=== PATIENT | male | born 1960 | race Caucasian/White ===

== ENCOUNTER 2021-04-20 08:52 | Inpatient (IN) | payer MEDICAID, OTHER ==
[~2021-04-20] VITALS: Ht 180.3 cm; Wt 158.2 kg
[~2021-04-20 08:52] MED LIST: ATEN-73 PO; INSLAN SQ; LISI-894 PO
[2021-04-20 09:43] LABS: BASOPHILS % (AUTO) 0.4 % (0.0-2.0); EOSINOPHILS % (AUTO) 0.7 % (1.0-6.0); HEMATOCRIT 34.9 % (41-53); HEMOGLOBIN 11.8 g/dL (13.5-17.5); LYMPHOCYTES # (AUTO) 0.9 K/uL (1.0-4.8); LYMPHOCYTES % (AUTO) 4.7 % (22.0-44.0); MEAN CORPUSCULAR HEMOGLOBIN 29.6 pg (26.0-34.0); MEAN CORPUSCULAR HGB CONC 33.8 G/dL (31.0-37.0); MEAN CORPUSCULAR VOLUME 88 fL (80-100); MONOCYTES # (AUTO) 1.4 K/uL (0.1-1.0); MONOCYTES % (AUTO) 7.4 % (2.0-9.0); NEUTROPHILS # (AUTO) 16.4 K/uL (1.8-7.7); NEUTROPHILS % (AUTO) 86.8 % (40.0-70.0); PLATELET COUNT (AUTO) 293 K/uL (150-450); RED BLOOD CELL COUNT(AUTO) 3.98 MIL/uL (4.50-5.90); RED CELL DISTRIBUTION WIDTH 13.6 % (11.5-14.5)
[2021-04-20 09:47] LABS: CALCIUM, TOTAL 8.5 mg/dL (8.8-10.5); CREATININE 1.57 mg/dL (0.60-1.30); POTASSIUM 3.9 mmol/L (3.5-5.1)
[2021-04-20 09:53] LABS: ALBUMIN 2.8 g/dL (3.4-5.0); TOTAL PROTEIN, SERUM 7.5 g/dL (6.4-8.2)
[2021-04-20] MEDS ORDERED: SODIUM CHLORIDE 0.9% 100 ML ONE (10:28)
[2021-04-20] MEDS ORDERED: IOHEXOL 350 MG/ML 150 ML VIAL ONE (10:28)
[2021-04-20] MEDS ORDERED: PIPERACILLIN/TAZO 3.375 GM/D5W 50 ML IV ONE (11:45)
[2021-04-20 13:12] LABS: COVID AG,FIA SOURCE NASOPHARYNGEAL
[2021-04-20] MEDS ORDERED: RINGERS SOLUTION,LACTATED 1,000 ML IV ONE (14:17)
[2021-04-20] MEDS ORDERED: VANCOMYCIN HCL 1 GM/VIAL ONE (14:40)
[2021-04-20] MEDS ORDERED: LIDOCAINE/PF 1% 30 ML VIAL ONE (14:40)
[2021-04-20] MEDS ORDERED: BUPIVACAINE HCL/PF 0.25% 30 ML VIAL ONE (14:40)
[2021-04-20] MEDS ORDERED: SODIUM CL IRRIG SOLN BAG 3,000 ML IRRIG ONE (14:40)
[2021-04-20] MEDS ORDERED: SODIUM CHLORIDE 0.9% 0 ML ONE (14:40)
[2021-04-20] MEDS ORDERED: BUPIVACAINE HCL/PF 0.5% 30 ML VIAL ONE (14:40)
[2021-04-20] MEDS ORDERED: HYDROmorphone 2 MG/ML VIAL IVP PRN (15:15)
[2021-04-20] MEDS ORDERED: FentaNYL CITRATE PF 100 MCG/2 ML VIAL IVP PRN (15:15)
[2021-04-20] MEDS ORDERED: SUGAMMADEX SODIUM 200 MG/2 ML VIAL IVP ONE (15:28)
[2021-04-20 17:00] VITALS: BP 111/50
[2021-04-20] MEDS ORDERED: AZIL1TAB2 PO (17:58)
[2021-04-20] MEDS ORDERED: METO-558 PO (17:58)
[2021-04-20] MEDS ORDERED: ISOS30TA92 PO (17:58)
[2021-04-20] MEDS ORDERED: CLOT15CR29 TP (17:58)
[2021-04-20] MEDS ORDERED: AMLO-258 PO (17:58)
[2021-04-20] MEDS ORDERED: METF-1185 PO (17:58)
[2021-04-20] MEDS ORDERED: ATOR20TA86 PO (17:58)
[2021-04-20] MEDS ORDERED: LEVO25TA9 PO (17:58)
[2021-04-20] MEDS ORDERED: SITA50 PO (17:58)
[2021-04-20] MEDS ORDERED: DEXTROSE 50%-WATER 25 GM/50 ML SYRINGE IVP PRN (20:45)
[2021-04-20] MEDS ORDERED: ALBUTEROL SULFATE 2.5 MG/0.5 ML NEB SOLUTION NEB PRN (21:00)
[2021-04-20] MEDS ORDERED: MORPHINE SULFATE 2 MG/ML SYRINGE IVP PRN (21:00)
[2021-04-20] MEDS ORDERED: ZOLPIDEM TARTRATE 5 MG TABLET PO PRN (21:00)
[2021-04-20] MEDS ORDERED: MAGNESIUM HYDROXIDE SUSPENSION 30 ML UDCUP PO PRN (21:00)
[2021-04-20] MEDS ORDERED: HYDROCODONE/ACETAMINOPHEN 5-325 MG TABLET PO PRN (21:00)
[2021-04-20] MEDS ORDERED: ONDANSETRON HCL 4 MG/2 ML VIAL IVP PRN (21:00)
[2021-04-20] MEDS ORDERED: IPRATROPIUM BROMIDE 0.5 MG/2.5 ML NEB SOLUTION NEB PRN (21:00)
[2021-04-20] MEDS ORDERED: BISACODYL 10 MG RECTAL RECTAL SUPPOSITORY PR PRN (21:00)
[2021-04-20] MEDS ORDERED: ACETAMINOPHEN 325 MG TABLET PO PRN (21:00)
[2021-04-20] MEDS: OXYGEN THERAPY IH SCH (21:17)
[2021-04-20] MEDS: CLOTRIMAZOLE 1% 15 GM CREAM TP SCH (21:17)
[2021-04-20] MEDS: INSULIN LISPRO 100 UNITS/ML SQ PRN (21:18)
[2021-04-20 23:00] VITALS: BP 107/69
[2021-04-20] MEDS: PIPERACILLIN/TAZO 3.375 GM/D5W 50 ML IV SCH (23:51)
[2021-04-20] MEDS: HEPARIN SODIUM,PORCINE 5,000 UNITS/ML VIAL SQ SCH (23:51)
[2021-04-20] MEDS ORDERED: SODIUM CHLORIDE 0.9% 500 ML IV ONE (23:56)
[2021-04-21 00:50] VITALS: BP 134/81
[2021-04-21] MEDS ORDERED: VANCOMYCIN HCL 1 GM/D5% WATER 200 ML IV ONE ×2 (02:00)
[2021-04-21 04:35] VITALS: BP 103/63
[2021-04-21] MEDS ORDERED: SUGAMMADEX SODIUM 200 MG/2 ML VIAL IVP ONE (05:45)
[2021-04-21] MEDS ORDERED: SUCCINYLCHOLINE CHLORIDE 20 MG/ML 10 ML VIAL IVP ONE (05:45)
[2021-04-21] MEDS ORDERED: MIDAZOLAM HCL 2 MG/2 ML VIAL IVP ONE (05:45)
[2021-04-21] MEDS ORDERED: LIDOCAINE/PF 2% 5 ML SYRINGE IVP ONE (05:45)
[2021-04-21] MEDS ORDERED: FentaNYL CITRATE PF 100 MCG/2 ML VIAL IVP ONE (05:45)
[2021-04-21] MEDS ORDERED: ROCURONIUM BROMIDE 10 MG/ML 5 ML VIAL IVP ONE (05:45)
[2021-04-21] MEDS ORDERED: PROPOFOL 1% 20 ML VIAL IVP ONE (05:45)
[2021-04-21] MEDS ORDERED: ONDANSETRON HCL 4 MG/2 ML VIAL IVP ONE (05:45)
[2021-04-21] MEDS: PIPERACILLIN/TAZO 3.375 GM/D5W 50 ML IV SCH ×3 (05:55→17:12)
[2021-04-21] MEDS: INSULIN LISPRO 100 UNITS/ML SQ PRN ×4 (05:55→21:15)
[2021-04-21] MEDS: LEVOTHYROXINE SODIUM 25 MCG TABLET PO SCH (06:03)
[2021-04-21 06:06] LABS: GLUCOMETER DEV NAME(LOC) 6N.2; GLUCOSE,POINT OF CARE 246 MG/DL (70-110)
[2021-04-21 06:45] LABS: BASOPHILS % (AUTO) 0.1 % (0.0-2.0); EOSINOPHILS % (AUTO) 0 % (1.0-6.0); HEMATOCRIT 34.2 % (41-53); HEMOGLOBIN 11.6 g/dL (13.5-17.5); LYMPHOCYTES # (AUTO) 1.2 K/uL (1.0-4.8); LYMPHOCYTES % (AUTO) 5.9 % (22.0-44.0); MEAN CORPUSCULAR HEMOGLOBIN 29.7 pg (26.0-34.0); MEAN CORPUSCULAR HGB CONC 34.1 G/dL (31.0-37.0); MEAN CORPUSCULAR VOLUME 87 fL (80-100); MONOCYTES # (AUTO) 1.2 K/uL (0.1-1.0); PLATELET COUNT (AUTO) 309 K/uL (150-450); RED BLOOD CELL COUNT(AUTO) 3.92 MIL/uL (4.50-5.90); RED CELL DISTRIBUTION WIDTH 13.3 % (11.5-14.5)
[2021-04-21 07:07] LABS: GLUCOMETER DEV NAME(LOC) 6N.1; GLUCOSE,POINT OF CARE 304 MG/DL (70-110)
[2021-04-21 07:07] LABS: GLUCOMETER DEV NAME(LOC) 6N.1; GLUCOSE,POINT OF CARE 187 MG/DL (70-110)
[2021-04-21 07:09] LABS: ALBUMIN 2.6 g/dL (3.4-5.0); BILIRUBIN,TOTAL 0.9 mg/dL (0.1-1.0); CALCIUM, TOTAL 8.5 mg/dL (8.8-10.5); CREATININE 1.45 mg/dL (0.60-1.30); POTASSIUM 4.9 mmol/L (3.5-5.1); TOTAL PROTEIN, SERUM 7.4 g/dL (6.4-8.2)
[2021-04-21] MEDS: SitaGLIPtin PHOSPHATE 50 MG TABLET PO SCH (08:02)
[2021-04-21] MEDS: OXYGEN THERAPY IH SCH ×2 (08:02→20:00)
[2021-04-21] MEDS: PANTOPRAZOLE SODIUM 40 MG/VIAL IVP SCH (08:03)
[2021-04-21] MEDS: METOPROLOL SUCCINATE 50 MG ER TABLET PO SCH (08:03)
[2021-04-21] MEDS: AmLODIPine BESYLATE 10 MG TABLET PO SCH (08:03)
[2021-04-21] MEDS: ATORVASTATIN CALCIUM 20 MG TABLET PO SCH (08:03)
[2021-04-21] MEDS: HEPARIN SODIUM,PORCINE 5,000 UNITS/ML VIAL SQ SCH ×2 (08:03→15:19)
[2021-04-21] MEDS: ISOSORBIDE MONONITRATE 30 MG ER TABLET PO SCH (08:03)
[2021-04-21] MEDS: INSULIN GLARGINE,HUM.REC.ANLOG 100 UNITS/ML SQ SCH (08:09)
[2021-04-21] MEDS: CLOTRIMAZOLE 1% 15 GM CREAM TP SCH ×2 (08:18→20:05)
[2021-04-21 08:31] VITALS: BP 109/65
[2021-04-21] MEDS ORDERED: VANCOMYCIN HCL 1.25 GM in DEXTROSE 5%-WATER 250 ML IV ONE (09:30)
[2021-04-21 13:51] LABS: GLUCOMETER DEV NAME(LOC) 6N.2; GLUCOSE,POINT OF CARE 202 MG/DL (70-110)
[2021-04-21 16:09] VITALS: BP 105/71
[2021-04-21] MEDS: CHLORTHALIDONE PO SCH (16:35)
[2021-04-21] MEDS: AZILSARTAN MED PO SCH (16:35)
[2021-04-21 18:26] LABS: GLUCOMETER DEV NAME(LOC) 6N.1; GLUCOSE,POINT OF CARE 203 MG/DL (70-110)
[2021-04-21] MEDS: VANCOMYCIN HCL 1.25 GM in DEXTROSE 5%-WATER 250 ML IV SCH (20:05)
[2021-04-21 20:22] VITALS: BP 92/52
[2021-04-21 21:52] LABS: GLUCOMETER DEV NAME(LOC) 6N.1; GLUCOSE,POINT OF CARE 153 MG/DL (70-110)
[2021-04-22] VITALS (8 sets, daily range): BP systolic 76–112; BP diastolic 37–66
[2021-04-22] MEDS: PIPERACILLIN/TAZO 3.375 GM/D5W 50 ML IV SCH ×5 (00:13→23:24)
[2021-04-22] MEDS: HEPARIN SODIUM,PORCINE 5,000 UNITS/ML VIAL SQ SCH ×4 (00:13→23:33)
[2021-04-22] MEDS: LEVOTHYROXINE SODIUM 25 MCG TABLET PO SCH (06:00)
[2021-04-22] MEDS: INSULIN LISPRO 100 UNITS/ML SQ PRN ×4 (06:00→20:48)
[2021-04-22 07:17] LABS: GLUCOMETER DEV NAME(LOC) 6N.2; GLUCOSE,POINT OF CARE 150 MG/DL (70-110)
[2021-04-22] MEDS: VANCOMYCIN HCL 1.25 GM in DEXTROSE 5%-WATER 250 ML IV SCH (07:47)
[2021-04-22] MEDS: OXYGEN THERAPY IH SCH ×2 (08:00→20:00)
[2021-04-22] MEDS: PANTOPRAZOLE SODIUM 40 MG/VIAL IVP SCH (08:12)
[2021-04-22] MEDS: SitaGLIPtin PHOSPHATE 50 MG TABLET PO SCH (08:12)
[2021-04-22] MEDS: ATORVASTATIN CALCIUM 20 MG TABLET PO SCH (08:12)
[2021-04-22] MEDS: INSULIN GLARGINE,HUM.REC.ANLOG 100 UNITS/ML SQ SCH (08:14)
[2021-04-22] MEDS: ISOSORBIDE MONONITRATE 30 MG ER TABLET PO SCH (09:00)
[2021-04-22] MEDS: METOPROLOL SUCCINATE 50 MG ER TABLET PO SCH (09:00)
[2021-04-22] MEDS: AmLODIPine BESYLATE 10 MG TABLET PO SCH (09:00)
[2021-04-22 09:05] LABS: BASOPHILS % (AUTO) 0.5 % (0.0-2.0); EOSINOPHILS % (AUTO) 3.1 % (1.0-6.0); HEMATOCRIT 32.7 % (41-53); LYMPHOCYTES # (AUTO) 2.3 K/uL (1.0-4.8); LYMPHOCYTES % (AUTO) 15.2 % (22.0-44.0); MEAN CORPUSCULAR HEMOGLOBIN 29.4 pg (26.0-34.0); MEAN CORPUSCULAR HGB CONC 33.8 G/dL (31.0-37.0); MEAN CORPUSCULAR VOLUME 87 fL (80-100); MONOCYTES % (AUTO) 6.8 % (2.0-9.0); NEUTROPHILS # (AUTO) 11.4 K/uL (1.8-7.7); NEUTROPHILS % (AUTO) 74.4 % (40.0-70.0); PLATELET COUNT (AUTO) 328 K/uL (150-450); RED BLOOD CELL COUNT(AUTO) 3.75 MIL/uL (4.50-5.90); RED CELL DISTRIBUTION WIDTH 13.4 % (11.5-14.5)
[2021-04-22 09:28] LABS: ALBUMIN 2.5 g/dL (3.4-5.0); BILIRUBIN,TOTAL 0.4 mg/dL (0.1-1.0); CALCIUM, TOTAL 8.3 mg/dL (8.8-10.5); CREATININE 1.45 mg/dL (0.60-1.30); POTASSIUM 3.7 mmol/L (3.5-5.1); VANCOMYCIN,RANDOM 18.5 mcg/mL (25.0-50.0)
[2021-04-22] MEDS: CLOTRIMAZOLE 1% 15 GM CREAM TP SCH ×2 (11:05→20:46)
[2021-04-22] MEDS: VANCOMYCIN HCL 1 GM/D5% WATER 200 ML IV SCH (19:33)
[2021-04-22 20:21] LABS: GLUCOMETER DEV NAME(LOC) 6N.2; GLUCOSE,POINT OF CARE 184 MG/DL (70-110)
[2021-04-22 20:21] LABS: GLUCOMETER DEV NAME(LOC) 6N.1; GLUCOSE,POINT OF CARE 190 MG/DL (70-110)
[2021-04-23 00:46] LABS: GLUCOMETER DEV NAME(LOC) 6N.1; GLUCOSE,POINT OF CARE 165 MG/DL (70-110)
[2021-04-23 05:17] VITALS: BP 100/56
[2021-04-23] MEDS: LEVOTHYROXINE SODIUM 25 MCG TABLET PO SCH (05:50)
[2021-04-23] MEDS: PIPERACILLIN/TAZO 3.375 GM/D5W 50 ML IV SCH ×2 (05:51→12:04)
[2021-04-23] MEDS: INSULIN LISPRO 100 UNITS/ML SQ PRN ×2 (05:55→11:56)
[2021-04-23] MEDS ORDERED: PANTOPRAZOLE SODIUM 40 MG DR TABLET PO SCH (06:30)
[2021-04-23 06:46] LABS: BASOPHILS % (AUTO) 0.9 % (0.0-2.0); HEMATOCRIT 32.2 % (41-53); HEMOGLOBIN 10.9 g/dL (13.5-17.5); LYMPHOCYTES # (AUTO) 2.3 K/uL (1.0-4.8); LYMPHOCYTES % (AUTO) 19.1 % (22.0-44.0); MEAN CORPUSCULAR HEMOGLOBIN 29.3 pg (26.0-34.0); MEAN CORPUSCULAR HGB CONC 33.9 G/dL (31.0-37.0); MEAN CORPUSCULAR VOLUME 86 fL (80-100); MONOCYTES # (AUTO) 0.9 K/uL (0.1-1.0); MONOCYTES % (AUTO) 7.6 % (2.0-9.0); NEUTROPHILS # (AUTO) 8.3 K/uL (1.8-7.7); NEUTROPHILS % (AUTO) 68.4 % (40.0-70.0); PLATELET COUNT (AUTO) 362 K/uL (150-450); RED BLOOD CELL COUNT(AUTO) 3.73 MIL/uL (4.50-5.90); RED CELL DISTRIBUTION WIDTH 13.7 % (11.5-14.5)
[2021-04-23 07:02] LABS: ALBUMIN 2.4 g/dL (3.4-5.0); BILIRUBIN,TOTAL 0.3 mg/dL (0.1-1.0); CALCIUM, TOTAL 8.4 mg/dL (8.8-10.5); CREATININE 1.44 mg/dL (0.60-1.30); POTASSIUM 3.8 mmol/L (3.5-5.1); TOTAL PROTEIN, SERUM 6.8 g/dL (6.4-8.2)
[2021-04-23 07:54] VITALS: BP 100/58
[2021-04-23 07:55] LABS: GLUCOMETER DEV NAME(LOC) 6N.2; GLUCOSE,POINT OF CARE 142 MG/DL (70-110)
[2021-04-23] MEDS: OXYGEN THERAPY IH SCH (08:00)
[2021-04-23] MEDS: VANCOMYCIN HCL 1 GM/D5% WATER 200 ML IV SCH (08:30)
[2021-04-23] MEDS: HEPARIN SODIUM,PORCINE 5,000 UNITS/ML VIAL SQ SCH ×2 (08:31→16:20)
[2021-04-23] MEDS: SitaGLIPtin PHOSPHATE 50 MG TABLET PO SCH (08:31)
[2021-04-23] MEDS: ATORVASTATIN CALCIUM 20 MG TABLET PO SCH (08:31)
[2021-04-23] MEDS: INSULIN GLARGINE,HUM.REC.ANLOG 100 UNITS/ML SQ SCH (08:38)
[2021-04-23] MEDS: CHLORTHALIDONE PO SCH (08:47)
[2021-04-23] MEDS: AZILSARTAN MED PO SCH (08:47)
[2021-04-23] MEDS: ISOSORBIDE MONONITRATE 30 MG ER TABLET PO SCH (08:48)
[2021-04-23] MEDS: AmLODIPine BESYLATE 10 MG TABLET PO SCH (08:49)
[2021-04-23] MEDS: METOPROLOL SUCCINATE 50 MG ER TABLET PO SCH (08:49)
[2021-04-23] MEDS: CLOTRIMAZOLE 1% 15 GM CREAM TP SCH (09:25)
[2021-04-23 12:37] LABS: GLUCOMETER DEV NAME(LOC) 6N.2; GLUCOSE,POINT OF CARE 171 MG/DL (70-110)
[2021-04-23 15:00] VITALS: BP 106/60
[2021-04-23] MEDS ORDERED: METR500 PO (15:02)
[2021-04-23] MEDS ORDERED: LEVO750T68 PO (15:02)
[2021-04-23] MEDS ORDERED: ACET325T51 PO (15:02)
[2021-04-23] MEDS ORDERED: RINGERS SOLUTION,LACTATED 1,000 ML IV ONE (15:15)
== END 2021-04-23 17:31 | disposition home or self-care (01) | DRG 710 ==
LOC: EMS 08:59 → 6S 14:11
PROVIDERS: ADMIT Hospitalist; ATTEND Hospitalist
PROC: 0D9Q0ZZ Drainage of Anus, Open Approach (ICD-10-PCS; principal; 2021-04-20 15:00)
DX: A41.9 Sepsis, unspecified organism (principal); N17.9 Acute kidney failure, unspecified; E87.1 Hypo-osmolality and hyponatremia; L03.315 Cellulitis of perineum; R16.0 Hepatomegaly, not elsewhere classified; E11.65 Type 2 diabetes mellitus with hyperglycemia; K61.39 Other ischiorectal abscess; D64.9 Anemia, unspecified; L02.31 Cutaneous abscess of buttock; E66.01 Morbid (severe) obesity due to excess calories; R79.89 Other specified abnormal findings of blood chemistry; I10 Essential (primary) hypertension; Z20.822 Contact with and (suspected) exposure to COVID-19; Z82.49 Family history of ischemic heart disease and other diseases of the circulatory system; Z83.3 Family history of diabetes mellitus; Z79.4 Long term (current) use of insulin; Z90.49 Acquired absence of other specified parts of digestive tract; Z79.899 Other long term (current) drug therapy; Z68.42 Body mass index [BMI] 45.0-49.9, adult
CPT/HCPCS: 71045; 74177; 80053; 80202; 82962; 85025; 87070; 93005; 99285; C9113; J0330; J1644; J1815; J2250; J2270; J2405; J2543; J2704; J3010; J3370; J3490; J7030; J7040; J7050; J7060; J7120; Q9967; 36415-L1; 36415-TC; Z7610

== ENCOUNTER → 2021-06-08 | Outpatient (CLI) | payer OTHER ==
[~2021-06-08] MED LIST changes: +ACET325T51 PO; -ATEN-73 PO; +ATOR20TA86 PO; +LEVO25TA9 PO; +LEVO750T68 PO; +LIDOCAINE 2% 5 ML JELLY TP ONE; -LISI-894 PO; +METF-1185 PO; +METR500 PO; +SITA50 PO
== END | disposition home or self-care (01) ==
LOC: HBOWC 09:26
PROVIDERS: ATTEND Emergency Medicine
DX: T81.89XA Other complications of procedures, not elsewhere classified, initial encounter (principal); L02.31 Cutaneous abscess of buttock; I10 Essential (primary) hypertension; E78.5 Hyperlipidemia, unspecified; E11.9 Type 2 diabetes mellitus without complications; E66.01 Morbid (severe) obesity due to excess calories; Z68.42 Body mass index [BMI] 45.0-49.9, adult; Z90.49 Acquired absence of other specified parts of digestive tract; Z20.822 Contact with and (suspected) exposure to COVID-19; Z79.4 Long term (current) use of insulin; Z79.899 Other long term (current) drug therapy; Y83.8 Other surgical procedures as the cause of abnormal reaction of the patient, or of later complication, without mention of misadventure at the time of the procedure; Y92.238 Other place in hospital as the place of occurrence of the external cause
CPT/HCPCS: 99205; G0463

== ENCOUNTER → 2021-06-22 | Outpatient (CLI) | payer OTHER ==
[~2021-06-22] MED LIST changes: +BUPIVACAINE HCL 0.5% 50 ML VIAL ID ONE; -LIDOCAINE 2% 5 ML JELLY TP ONE; +LIDOCAINE 2%/EPI 1:200,000/PF 10 ML VIAL ID ONE
== END | disposition home or self-care (01) ==
LOC: HBOWC 08:27
PROVIDERS: ATTEND Emergency Medicine
DX: T81.89XA Other complications of procedures, not elsewhere classified, initial encounter (principal); L02.211 Cutaneous abscess of abdominal wall; L02.31 Cutaneous abscess of buttock; I10 Essential (primary) hypertension; E78.5 Hyperlipidemia, unspecified; E11.9 Type 2 diabetes mellitus without complications; E66.01 Morbid (severe) obesity due to excess calories; Z68.42 Body mass index [BMI] 45.0-49.9, adult; Z90.49 Acquired absence of other specified parts of digestive tract; Z20.822 Contact with and (suspected) exposure to COVID-19; Z79.4 Long term (current) use of insulin; Z79.899 Other long term (current) drug therapy; Y83.8 Other surgical procedures as the cause of abnormal reaction of the patient, or of later complication, without mention of misadventure at the time of the procedure; Y92.238 Other place in hospital as the place of occurrence of the external cause
CPT/HCPCS: 10060; G0463; J3490

== ENCOUNTER → 2021-06-29 | Outpatient (CLI) | payer OTHER ==
[~2021-06-29] MED LIST changes: -BUPIVACAINE HCL 0.5% 50 ML VIAL ID ONE; -LIDOCAINE 2%/EPI 1:200,000/PF 10 ML VIAL ID ONE
== END | disposition home or self-care (01) ==
LOC: HBOWC 08:14
PROVIDERS: ATTEND Emergency Medicine
DX: T81.89XD Other complications of procedures, not elsewhere classified, subsequent encounter (principal); L02.211 Cutaneous abscess of abdominal wall; L02.31 Cutaneous abscess of buttock; I10 Essential (primary) hypertension; E78.5 Hyperlipidemia, unspecified; E11.9 Type 2 diabetes mellitus without complications; E66.01 Morbid (severe) obesity due to excess calories; Z68.42 Body mass index [BMI] 45.0-49.9, adult; Z90.49 Acquired absence of other specified parts of digestive tract; Z20.822 Contact with and (suspected) exposure to COVID-19; Z79.4 Long term (current) use of insulin; Z79.899 Other long term (current) drug therapy; Y83.8 Other surgical procedures as the cause of abnormal reaction of the patient, or of later complication, without mention of misadventure at the time of the procedure
CPT/HCPCS: G0463; Z7500

== ENCOUNTER → 2021-07-13 | Outpatient (CLI) | payer OTHER | END | disposition home or self-care (01) | LOC: HBOWC 07:41 | PROVIDERS: ATTEND Emergency Medicine | DX: T81.89XD Other complications of procedures, not elsewhere classified, subsequent encounter (principal); L02.211 Cutaneous abscess of abdominal wall; L02.31 Cutaneous abscess of buttock; I10 Essential (primary) hypertension; E78.5 Hyperlipidemia, unspecified; E11.9 Type 2 diabetes mellitus without complications; E66.01 Morbid (severe) obesity due to excess calories; Z68.42 Body mass index [BMI] 45.0-49.9, adult; Z90.49 Acquired absence of other specified parts of digestive tract; Z20.822 Contact with and (suspected) exposure to COVID-19; Z79.4 Long term (current) use of insulin; Z79.899 Other long term (current) drug therapy; Y83.8 Other surgical procedures as the cause of abnormal reaction of the patient, or of later complication, without mention of misadventure at the time of the procedure | CPT/HCPCS: G0463 ==

== ENCOUNTER → 2021-07-20 | Outpatient (CLI) | payer OTHER | END | disposition home or self-care (01) | LOC: HBOWC 07:54 | PROVIDERS: ATTEND Emergency Medicine | DX: T81.89XD Other complications of procedures, not elsewhere classified, subsequent encounter (principal); L02.211 Cutaneous abscess of abdominal wall; L02.31 Cutaneous abscess of buttock; I10 Essential (primary) hypertension; E78.5 Hyperlipidemia, unspecified; E11.9 Type 2 diabetes mellitus without complications; E66.01 Morbid (severe) obesity due to excess calories; Z68.42 Body mass index [BMI] 45.0-49.9, adult; Z90.49 Acquired absence of other specified parts of digestive tract; Z20.822 Contact with and (suspected) exposure to COVID-19; Z79.4 Long term (current) use of insulin; Z79.899 Other long term (current) drug therapy; Y83.8 Other surgical procedures as the cause of abnormal reaction of the patient, or of later complication, without mention of misadventure at the time of the procedure | CPT/HCPCS: G0463 ==

== ENCOUNTER → 2021-07-27 | Outpatient (CLI) | payer OTHER | END | disposition home or self-care (01) | LOC: HBOWC 07:39 | PROVIDERS: ATTEND Emergency Medicine | DX: T81.89XD Other complications of procedures, not elsewhere classified, subsequent encounter (principal); L02.211 Cutaneous abscess of abdominal wall; I10 Essential (primary) hypertension; E78.5 Hyperlipidemia, unspecified; E11.9 Type 2 diabetes mellitus without complications; E66.01 Morbid (severe) obesity due to excess calories; Z68.42 Body mass index [BMI] 45.0-49.9, adult; Z90.49 Acquired absence of other specified parts of digestive tract; Z20.822 Contact with and (suspected) exposure to COVID-19; Z79.4 Long term (current) use of insulin; Z79.899 Other long term (current) drug therapy; Y83.8 Other surgical procedures as the cause of abnormal reaction of the patient, or of later complication, without mention of misadventure at the time of the procedure | CPT/HCPCS: G0463; Z7500 ==

== ENCOUNTER → 2021-08-18 | Outpatient (CLI) | payer OTHER | END | disposition home or self-care (01) | LOC: HBOWC 07:55 | PROVIDERS: ATTEND Podiatrist | DX: T81.89XD Other complications of procedures, not elsewhere classified, subsequent encounter (principal); L02.211 Cutaneous abscess of abdominal wall; I10 Essential (primary) hypertension; E78.5 Hyperlipidemia, unspecified; E11.9 Type 2 diabetes mellitus without complications; E66.01 Morbid (severe) obesity due to excess calories; Z68.42 Body mass index [BMI] 45.0-49.9, adult; Z90.49 Acquired absence of other specified parts of digestive tract; Z20.822 Contact with and (suspected) exposure to COVID-19; Z79.4 Long term (current) use of insulin; Z79.899 Other long term (current) drug therapy; Y83.8 Other surgical procedures as the cause of abnormal reaction of the patient, or of later complication, without mention of misadventure at the time of the procedure | CPT/HCPCS: G0463; Z7500 ==